=== PATIENT | male | born 1990 | race Caucasian/White ===

== ENCOUNTER 2017-10-26 08:36 | Emergency (ER) | payer OTHER ==
[2017-10-26] MEDS: DIPHTH/TET/ACEL PERTUSS (ADULT) 0.5 ML VIAL IM* (09:16)
[2017-10-26] MEDS: HYDROCODONE/APAP (10/325) TAB PO (09:25)
[2017-10-26] MEDS: LIDOCAINE 1% (MDV) 20 ML INJ SC (10:03)
[2017-10-26] MEDS: BACITRACIN 0.9 GM OINT TOP (10:56)
[2017-10-26] MEDS: CEFTRIAXONE 1 GM INJ IM (10:57)
== END 2017-10-26 11:11 | disposition home or self-care (01) ==
LOC: FTE 08:36
DX: S61.230A Puncture wound without foreign body of right index finger without damage to nail, initial encounter (principal); L03.011 Cellulitis of right finger; J45.909 Unspecified asthma, uncomplicated; F17.210 Nicotine dependence, cigarettes, uncomplicated; W46.0XXA Contact with hypodermic needle, initial encounter; Y92.9 Unspecified place or not applicable; Z23 Encounter for immunization
CPT/HCPCS: 26011; 73130-RT; 90471; 90715; 96372; 99284-25

== ENCOUNTER 2017-12-27 22:03 | Emergency (ER) | payer OTHER ==
[2017-12-27] MEDS: IBUPROFEN 800 MG TAB PO (22:28)
[2017-12-27] MEDS: ALPRAZOLAM 1 MG TAB PO (22:28)
== END 2017-12-27 23:27 ==
LOC: E/R 22:03
DX: F19.939 Other psychoactive substance use, unspecified with withdrawal, unspecified (principal); R40.2142 Coma scale, eyes open, spontaneous, at arrival to emergency department; R40.2362 Coma scale, best motor response, obeys commands, at arrival to emergency department; R40.2252 Coma scale, best verbal response, oriented, at arrival to emergency department; J45.909 Unspecified asthma, uncomplicated; F17.210 Nicotine dependence, cigarettes, uncomplicated
CPT/HCPCS: 99283